=== PATIENT | male | born 1985 | race Caucasian/White ===

== ENCOUNTER 2016-12-25 11:44 | Day surgery (SDC) | payer OTHER ==
[~2016-12-25] VITALS: Ht 170.2 cm; Wt 80.9 kg
[~2016-12-25 11:44] MED LIST: LACTATED RINGERS 1,000 ML IV ONE; LACTATED RINGERS 1,000 ML IV SCH; SODIUM CHLORIDE FLUSH 3 ML SYR IV PRN; SODIUM CHLORIDE FLUSH 3 ML SYR ONE
[2016-12-25 11:58] VITALS: BP 127/77
[2016-12-25] MEDS ORDERED: ADAL10SY SQ (12:18)
[2016-12-25] MEDS ORDERED: OXYMETAZOLINE 0.05% NASAL SPRAY (AFRIN) 15 ML BTL PRN (12:40)
[2016-12-25] MEDS ORDERED: OXYMETAZOLINE 0.05% NASAL SPRAY (AFRIN) 15 ML BTL ONE (13:01)
[2016-12-25] MEDS ORDERED: MUPIROCIN 2% OINT 22 GM (BACTROBAN) TUBE TOP ONE (13:01)
[2016-12-25] MEDS ORDERED: LIDOCAINE/EPINEPHRINE 1% 1:100,000 (XYLOCAINE) 30 ML VIAL INJ ONE (13:02)
[2016-12-25] MEDS ORDERED: POVIDONE IODINE 10% OINTMENT (BETADINE) 30 GM TUBE TOP ONE (13:02)
[2016-12-25] MEDS ORDERED: ONDANSETRON 2 MG/ML (Z0FRAN) 2 ML VIAL IV PRN (13:25)
[2016-12-25] MEDS ORDERED: ACETAMINOPHEN/CODEINE 300MG/30 MG (TYLENOL #3) TABLET PO PRN (13:25)
[2016-12-25] MEDS ORDERED: PROPOFOL 20 ML IV ONE (14:08)
[2016-12-25] MEDS ORDERED: SUCCINYLCHOLINE 20 MG/ML 10 ML VIAL ONE (14:08)
[2016-12-25] MEDS ORDERED: ALFENTANIL 1,000 MCG/2 ML AMP IV ONE (14:09)
[2016-12-25] MEDS ORDERED: ATROPINE SULFATE 1 MG/1 ML SDV IV ONE (14:29)
[2016-12-25 15:47] VITALS: BP 147/92
[2016-12-25 16:07] VITALS: BP 136/93
[2016-12-25 16:30] VITALS: BP 133/102
[2016-12-25 16:52] VITALS: BP 132/82
[2016-12-25] MEDS ORDERED: HYPERTONIC SALINE IRRIGATION 1000 ML BTL IR SCH (21:00)
--- NOTE | 2016-12-26 11:21 | OPERATIVE REPORT ---
DATE OF OPERATION: 12/25/2016 [facility] NO.: [id number] PRE-OPERATIVE DIAGNOSES: Nasal septal deviation, bilateral partial inferior turbinate reduction, nasal polyp disease left ethmoid sinus, chronic maxillary sinusitis, chronic sphenoid sinusitis, and chronic frontal sinusitis bilaterally. POST-OPERATIVE DIAGNOSES: Nasal septal deviation, bilateral partial inferior turbinate reduction, nasal polyp disease left ethmoid sinus, chronic maxillary sinusitis, chronic sphenoid sinusitis, and chronic frontal sinusitis bilaterally. OPERATIVE PROCEDURE: 1. Septoplasty. 2. Left partial inferior turbinate reduction. 3. Right partial inferior turbinate reduction. 4. Left endoscopic ethmoidectomy with polypectomy SURGEON: Ken Mccoy MD ANESTHESIA: General endotracheal INDICATION: This is a 31-year-old male with a history of ongoing chronic sinusitis and nasal airway obstruction. He was found to have moderate to severe deviated nasal septum with an S-shaped deformity and large inferior turbinates with nasal polyps at the left ethmoid region. OPERATIVE FINDINGS: Findings as described. OPERATIVE NOTE: Following informed consent, the patient was taken to the Operating Room and placed in a supine position. Satisfactory general endotracheal anesthesia was obtained. The patient was prepped for surgery with Afrin nasal spray and 1% lidocaine with epinephrine. SEPTOPLASTY: A left sided hemitransfixion incision was performed followed by elevation of a mucoperichondrial flap. The cartilage knife was used to incise the cartilage and elevate a contralateral mucoperichondrial flap followed by removal of a portion of the quadrilateral cartilage using the swivel knife. The inferior aspect of the perpendicular plate of the ethmoid was trimmed with the Kuldeep-Librado double action rongeur and a bone spur from posterior was removed with the Scott forceps. This allowed the flaps to swing back to the midline. Morselized cartilage were replaced between flaps and sutured with 4-0 plain gut suture in a mattress fashion. The hemitransfixion incision was closed with a 4-0 chromic suture. LEFT PARTIAL INFERIOR TURBINATE REDUCTION: The left inferior turbinate was shaved along its inferior and lateral edge using the suction microdebrider removing both soft tissue and bone, decreasing the size of the turbinate by 20%. It was then cauterized with suction electrocautery for hemostasis and then lightly lateralized with the Boies elevator. Afrin packs were then placed in this side of the nose. RIGHT PARTIAL INFERIOR TURBINATE REDUCTION: The right inferior turbinate was shaved along its inferior and lateral edge using the suction microdebrider removing both soft tissue and bone, decreasing the size of the turbinate by 20%. It was then cauterized with suction electrocautery for hemostasis and then lightly lateralized with the Boies elevator. Afrin packs were then placed in this side of the nose. LEFT ENDOSCOPIC ETHMOIDECTOMY WITH POLYPEVTOMY: Next the left side of the nose was endoscopically evaluated using a 0-degree 4-mm telescope. There were multiple polyps at the anterior ethmoid and these were shaved free using the suction microdebrider. The anterior ethmoid was opened at the ethmoid bulla and the anterior ethmoid cells using the suction microdebrider. This was taken back to healthy tissue. Next the middle turbinates were sutured to the midline using a [id number] 4-0 Vicryl suture in a mattress fashion. This medialized the middle turbinates and opened up the nose widely. Both sides of the nose were again irrigated with saline and suctioned until clear. Afrin packs were placed along the floor of the nose and in the middle meatus. The patient was awakened and taken to the recovery room in good condition.
== END 2016-12-25 17:04 | disposition home or self-care (01) ==
LOC: ASC 11:44
PROVIDERS: ATTEND Otolaryngology
DX: J34.2 Deviated nasal septum (principal); J34.3 Hypertrophy of nasal turbinates; J32.2 Chronic ethmoidal sinusitis; J33.8 Other polyp of sinus; J32.1 Chronic frontal sinusitis; J32.0 Chronic maxillary sinusitis; J32.3 Chronic sphenoidal sinusitis
CPT/HCPCS: 30130; 30520; 31254; J0330; J0461; J7120